=== PATIENT | female | born 1995 | race African-American/Black ===

== ENCOUNTER 2020-03-19 11:21 | Emergency (ER) | payer BC, OTHER ==
[2020-03-19 12:09] LABS: Urine Blood TRACE (NEG); Urine Glucose NEGATIVE (NEG); Urine Protein 1+ (NEG); Urine Specific Gravity >1.030 (1.005-1.030)
[2020-03-19 12:49] LABS: Urine Bacteria >50 /HPF (<20); Urine Culture Reflex Order REFLEXED
--- NOTE | 2020-03-19 13:05 | ER ---
Nurse's Notes [facility] Name: Nikolai Rojo Age: 24 yrs Sex: Female : 1995 Arrival Date: 03/19/2020 Time: 11:26 Bed 15 Private MD: Diagnosis: Urinary tract infection, site not specified Presentation: 03/19 11:33 Chief complaint: Patient states: suprapubic discomfort and low back pain that began 4 ss days ago. Burning with urination that began 2 days ago. Coronavirus screen: Client denies travel out of the [place] in the last 14 days. Ebola Screen: Patient denies exposure to infectious person. Patient denies travel to an Ebola-affected area in the 21 days before illness onset. Initial Sepsis Screen: Does the patient meet any 2 criteria? No. Patient's initial sepsis screen is negative. Does the patient have a suspected source of infection? No. Patient's initial sepsis screen is negative. Risk Assessment: Do you want to hurt yourself or someone else? Patient reports no desire to harm self or others. Onset of symptoms was March 15, 2020. 11:33 Method Of Arrival: Ambulatory ss 11:33 Acuity: LUBA 3 ss Historical: - Allergies: 11:36 No Known Allergies; ss - Home Meds: 11:36 None [Active]; ss - PMHx: 11:36 None; ss - PSHx: 11:36 Tonsillectomy; ss - Immunization history:: Adult Immunizations up to date. - Social history:: Smoking status: Patient denies any tobacco usage or history of. Screenin:05 Abuse screen: Denies threats or abuse. Denies injuries from another. Nutritional hb screening: No deficits noted. Tuberculosis screening: No symptoms or risk factors identified. Fall Risk None identified. Assessment: 11:45 General: Appears in no apparent distress. Behavior is calm, cooperative. Pain: Pain hb currently is 8 out of 10 on a pain scale. Neuro: Level of Consciousness is awake, alert, obeys commands, Oriented to person, place, time, situation. Cardiovascular: Capillary refill < 3 seconds Patient's skin is warm and dry. Respiratory: Airway is patent Respiratory effort is even, unlabored, Respiratory pattern is regular, symmetrical. GI: No signs and/or symptoms were reported involving the gastrointestinal system. : Reports suprapubic pain and pain with urination. EENT: No signs and/or symptoms were reported regarding the EENT system. Derm: Skin is pink, warm \T\ dry. Musculoskeletal: Reports low back pain. 12:45 Reassessment: Patient appears in no apparent distress at this time. Patient and/or hb family updated on plan of care and expected duration. Pain level reassessed. Patient is alert, oriented x 3, equal unlabored respirations, skin warm/dry/pink. Vital Signs: 11:33 BP 119 / 82; Pulse 93; Resp 14; Temp 97.9(TE); Pulse Ox 99% on R/A; Weight 56.7 kg; ss Height 5 ft. 4 in. (162.56 cm); Pain 8/10; 13:00 BP 118 / 80; Pulse 82; Resp 16; Pulse Ox 99% on R/A; hb 11:33 Body Mass Index 21.46 (56.70 kg, 162.56 cm) ED Course: 11:26 Patient arrived in ED. ds1 11:35 Triage completed. ss 11:36 Arm band placed on right wrist. ss 11:38 Juli Peña FNP-C is [facility]. kb 11:38 Corky Mcgregor MD is Attending Physician. kb 11:40 Laura Maher, RN is Primary Nurse. hb 12:05 Patient has correct armband on for positive identification. Bed in low position. Call hb light in reach. 13:21 No provider procedures requiring assistance completed. Patient did not have IV access hb during this emergency room visit. Administered Medications: No medications were administered Outcome: 13:04 Discharge ordered by . kb 13:21 Discharged to home ambulatory. hb 13:21 Condition: stable 13:21 Discharge instructions given to patient, Instructed on discharge instructions, follow up and referral plans. medication usage, Demonstrated understanding of instructions, follow-up care, medications, Prescriptions given X 2. 13:22 Patient left the ED. hb Addendum: 03/22/2020 09:07 Addendum: Culture Results: Positive urine culture. No further action required. Bacteria a a5 sensitive to prescribed antibiotic. Signatures: Juli Peña FNP-C X RAY DEVELOPER-Aliya Santiago ds1 Karine Blake RN RN aa5 Daria Yang RN RN Maher, Laura, RN RN hb
--- NOTE | 2020-03-19 13:05 | EDPHYS ---
Physician Documentation [facility] Name: Nikolai Rojo Age: 24 yrs Sex: Female : 1995 Arrival Date: 03/19/2020 Time: : Bed 15 Private MD: ED Physician Corky Mcgregor HPI: 03/19 12:01 This 24 yrs old Black Female presents to ER via Ambulatory with complaints of Pain With kb Urination, Low Back Pain, Nausea. 12:01 The patient presents with urinary symptoms, dysuria, frequency. Onset: The kb symptoms/episode began/occurred 4 day(s) ago. Modifying factors: The symptoms are alleviated by nothing, the symptoms are aggravated by urinating. Associated signs and symptoms: Pertinent positives: dysuria, urinary frequency, Pertinent negatives: constipation, cramping, diarrhea, dyspareunia, hematuria, nausea, vaginal bleeding, vaginal discharge, vomiting. Severity of symptoms: At their worst the symptoms were moderate, in the emergency department the symptoms are unchanged. The patient has experienced similar episodes in the past, a few times. The patient has not recently seen a physician. Pt reports dysuria and urinary frequency for 4 days. States it got worse after sexual intercourse so she came in . Historical: - Allergies: 11:36 No Known Allergies; ss - Home Meds: 11:36 None [Active]; ss - PMHx: 11:36 None; ss - PSHx: 11:36 Tonsillectomy; ss - Immunization history:: Adult Immunizations up to date. - Social history:: Smoking status: Patient denies any tobacco usage or history of. ROS: 12:00 Constitutional: Negative for fever, chills, and weight loss, Cardiovascular: Negative kb for chest pain, palpitations, and edema, Respiratory: Negative for shortness of breath, cough, wheezing, and pleuritic chest pain, Abdomen/GI: Negative for abdominal pain, nausea, vomiting, diarrhea, and constipation, Back: Negative for injury and pain, MS/Extremity: Negative for injury and deformity, Skin: Negative for injury, rash, and discoloration, Neuro: Negative for headache, weakness, numbness, tingling, and seizure. 12:00 : Positive for urinary symptoms, urinary frequency, burning with urination. Exam: 12:00 Constitutional: This is a well developed, well nourished patient who is awake, alert, kb and in no acute distress. Head/Face: Normocephalic, atraumatic. Chest/axilla: Normal chest wall appearance and motion. Nontender with no deformity. No lesions are appreciated. Cardiovascular: Regular rate and rhythm with a normal S1 and S2. No gallops, murmurs, or rubs. Normal PMI, no JVD. No pulse deficits. Respiratory: Lungs have equal breath sounds bilaterally, clear to auscultation and percussion. No rales, rhonchi or wheezes noted. No increased work of breathing, no retractions or nasal flaring. Abdomen/GI: Soft, non-tender, with normal bowel sounds. No distension or tympany. No guarding or rebound. No evidence of tenderness throughout. Back: No spinal tenderness. No costovertebral tenderness. Full range of motion. Skin: Warm, dry with normal turgor. Normal color with no rashes, no lesions, and no evidence of cellulitis. MS/ Extremity: Pulses equal, no cyanosis. Neurovascular intact. Full, normal range of motion. Neuro: Awake and alert, GCS 15, oriented to person, place, time, and situation. Cranial nerves II-XII grossly intact. Motor strength 5/5 in all extremities. Sensory grossly intact. Cerebellar exam normal. Normal gait. Vital Signs: 11:33 BP 119 / 82; Pulse 93; Resp 14; Temp 97.9(TE); Pulse Ox 99% on R/A; Weight 56.7 kg; ss Height 5 ft. 4 in. (162.56 cm); Pain 8/10; 13:00 BP 118 / 80; Pulse 82; Resp 16; Pulse Ox 99% on R/A; hb 11:33 Body Mass Index 21.46 (56.70 kg, 162.56 cm) ss MDM: 11:38 Patient medically screened. kb 12:01 Data reviewed: vital signs, nurses notes. Data interpreted: Pulse oximetry: on room air kb is 99 %. Interpretation: normal. 13:04 Counseling: I had a detailed discussion with the patient and/or guardian regarding: the kb historical points, exam findings, and any diagnostic results supporting the discharge/admit diagnosis, lab results, the need for outpatient follow up, a family practitioner, to return to the emergency department if symptoms worsen or persist or if there are any questions or concerns that arise at home. 03/19 11:38 Order name: Urine Microscopic Only; Complete Time: 13:04 kb 03/19 11:54 Order name: Urine Dipstick--Ancillary (enter results); Complete Time: 12:12 mt 03/19 11:38 Order name: Urine Test (obtain specimen); Complete Time: 11:54 kb 03/19 11:38 Order name: Urine Dipstick-Ancillary (obtain specimen); Complete Time: 11:54 kb 03/19 11:54 Order name: Urine --Ancillary (enter results); Complete Time: 12:12 mt 03/19 12:50 Order name: Urine Culture EDMS Administered Medications: No medications were administered Disposition: 18:51 Co-signature as Attending Physician, Corky Mcgregor MD I agree with the assessment and kdr plan of care. Disposition: 03/19/20 13:04 Discharged to Home. Impression: Urinary tract infection, site not specified. - Condition is Stable. - Discharge Instructions: Urinary Tract Infection, Adult, [id number]. - Prescriptions for Pyridium 200 mg Oral Tablet - take 1 tablet by ORAL route every 8 hours for 3 days; 9 tablet. Macrobid 100 mg Oral Capsule - take 1 capsule by ORAL route every 12 hours for 10 days; 20 capsule. - Medication Reconciliation Form, Thank You Letter, Antibiotic Education, Prescription Opioid Use form. - Follow up: Emergency Department; When: As needed; Reason: Worsening of condition. Follow up: Private Physician; When: 2 - 3 days; Reason: Recheck today's complaints, Continuance of care, Re-evaluation by your physician. Signatures: Dispatcher [employer] EDMS Juli Peña, UMBRELLA MENDER-C UMBRELLA MENDER-Corky Hernandez MD MD [facility] Daria Yang RN RN Laura Maher RN RN hb Corrections: (The following items were deleted from the chart) 13:22 13:04 03/19/2020 13:04 Discharged to Home. Impression: Urinary tract infection, site hb not specified. Condition is Stable. Discharge Instructions: Urinary Tract Infection, Adult, [id number]. Prescriptions for Pyridium 200 mg Oral Tablet - take 1 tablet by ORAL route every 8 hours for 3 days; 9 tablet, Macrobid 100 mg Oral Capsule - take 1 capsule by ORAL route every 12 hours for 10 days; 20 capsule. and Forms are Medication Reconciliation Form, Thank You Letter, Antibiotic Education, Prescription Opioid Use. Follow up: Emergency Department; When: As needed; Reason: Worsening of condition. Follow up: Private Physician; When: 2 - 3 days; Reason: Recheck today's complaints, Continuance of care, Re-evaluation by your physician. kb
[2020-03-19 13:27] VITALS: TEMP 97.9; O2SAT 99
[2020-03-19 13:28] VITALS: BP 118/80
== END 2020-03-19 13:22 | disposition home or self-care (01) ==
LOC: ER 11:21
DX: N39.0 Urinary tract infection, site not specified (principal)
CPT/HCPCS: 81003; 81015; 81025; 87077; 87086; 87088; 87186; 99282

== ENCOUNTER 2021-08-23 15:35 | Emergency (ER) | payer BC, SELFPAY ==
--- OUTSIDE RECORDS SUMMARY | 2021-08-23 15:38 | XMS REPORT | Continuity of Care Document ---
:1995 Author Organization [facility] t Address [address] [place] [address] Care Team Providers Name Role Phone PCP, DOES NOT HAVE A Primary Care Physician Unavailable Tabatha COLEMAN Attending Clinician Unavailable Silvia WHARTON S Attending Clinician Nettie Lemus NP Attending Clinician Nettie LEMUS Attending Clinician Unavailable Problems Condition Condition Condition Status Onset Resolution Last Treating Co mments Source Name Details Category Date Date Treatment Clinician Date No known No known Disease Unive rs active active ity of problems problems [facility] Allergies, Adverse Reactions, Alerts Allergy Allergy Status Severity Reaction(s) Onset Inactive Treating Comm ents Source Name Type Date Date Clinician Iodine Propensi Active Swelling 2020-06 Univer s ty to 06-27 ity of adverse 00:00: [place] reaction 00 [facility] [place] IODINE DRUG Active SOB 2020-06 Univers INGREDI 06-27 ity of 00:00: [place] 00 [facility] Social History Social Habit Start Date Stop Date Quantity Comments Source Exposure to Not sure [facility] SARS-CoV-2 (event) Medica l Branch Sex Assigned At [birth year] [facility] 00:00:00 00:00:00 [facility] Smoking Status Start Date Stop Date Source Unknown if ever smoked [facility] Medications Ordered Filled Start Stop Current Ordering Indication Dosage Frequency Signature Comments Components Source Medication Medication Date Date Medication? Clinician (SIG) Name Name casirivimab 2020-06- No 1200mg 1,200 mg, Univers 600 07-26 05-25 IV ity of mg-imdevima 02:45: 02:33 Infusion, [place] b 600 mg 00 :00 ONCE, Medical (REGEN-COV Administer [facility] (EUA)) 1200 over 20 mg in 60 mL Minutes, NS MINI-BAG On Mon (CO-FORMULA 05/24/21 TION) at 2045, For 1 dose<br&gt ;Add 1 vial of casirivima b 600 mg/imdevim ab 600 mg to 50 mL of NS to administer . Admi nister as an IV infusion via pump or gravity through an intravenou s line containing a sterile, in-line or add-on 0.2-micron polyethers ulfone (PES) filter.&nb sp;Stable 36 hours refrigerat ed; 4 hours at room temperatur e. &nbs p;
ondansetron 2020-06- No 4mg 4 mg, Slow Univers (ZOFRAN 07-26 IV Push, ity of (PF)) 02:30: 01:41 ONCE, 1 [place] injection 4 00 :00 dose, On Medi maryann mg [facility] Branch 05/24/21 at 2030, MONICA NaCl 0.9% 2020-06- No 1000mL at 999 Uni vers (NS) bolus 07-26 mL/hr, ity of infusion 02:30: 02:52 1,000 mL, Bonifacio as 1,000 mL 00 :00 IV Medical Infusion, Branch ONCE, 1 dose, On Mon05/24/21 at 2030, STAT acetaminoph 2020-06 No 1000mg 1,000 mg, Univers en 07-26 Oral, ity of (TYLENOL) 01:30: 00:34 ONCE, 1 [place] tablet 00 :00 dose, On Medical 1,000 mg [facility] Branch 05/24/21 at 1930, Routine ondansetron 2020-06 Yes [id number] 4mg Take 1 Univers (ZOFRAN 2-20 tablet by ity of ODT) 4 mg 00:00: mouth [place] disintegrat 00 every 8 Medic al ing tablet (eight) Branch hours as needed for Nausea and Vomiting (N/V). dexamethaso 2020-06- No 10mg 10 mg, Uni vers ne 1-24 11-24 Intramuscu ity of (DECADRON 06:45: 05:38 lar, ONCE, [place] PHOSPHATE) 00 :00 1 dose, On Med ical injection Wed Branch 10 mg 04/28/21 at 0045, Routine butalbital- 2020-06- No 2{tbl} 2 tablet, Univers acetaminoph 06-28 Oral, ity of en-caff 06:30: 05:37 ONCE, 1 [place] (ESGIC) 00 :00 dose, On Medical 50-325-40 Wed Branch mg tablet 2 04/28/21 tablet at 0030, Routine No known 2020-06 No Univers medications 06-27 ity of 23:33: [place] 31 [facility] Vital Signs Vital Name Observation Time Observation Value Comments Source Systolic blood 2021-05-25 03:01:00 104 mm[Hg] Univer sity of pressure [facility] Diastolic blood 2021-05-25 03:01:00 65 mm[Hg] [facility] Heart rate 2021-05-25 03:01:00 101 /min [facility] Respiratory rate 2021-05-25 03:01:00 22 /min [facility] Oxygen saturation in 2021-05-25 03:01:00 92 /min [place] of Arterial blood by [facility] Pulse oximetry Branch Body temperature 2021-05-25 00:17:28 39.56 Shilpa [facility] Body weight 2021-05-25 00:13:00 53.524 kg [facility] Systolic blood 2021-04-28 05:03:41 113 mm[Hg] Univer sity of [facility] Diastolic blood 2021-04-28 05:03:41 71 mm[Hg] Unive rsity of [facility] Heart rate 2021-04-28 05:03:41 89 /min [facility] Respiratory rate 2021-04-28 05:03:41 16 /min [facility] Oxygen saturation in 2021-04-28 05:03:41 100 /min University of Arterial blood by [facility] Pulse oximetry Branch Body temperature 2021-04-28 02:36:00 37.5 Shilpa [facility] Body weight 2021-04-28 02:36:00 53.524 kg Universi ty [facility] Procedures Procedure Date / Time Performed Performing Clinician Sourc e URINALYSIS 2021-05-25 00:53:00 Marlyn Coleman [place] [facility] f [facility] RAPID INFLUENZA A/B 2021-05-25 00:33:00 Marlyn Coleman [facility] COVID-19 (ID NOW RAPID 2021-05-25 00:33:00 Marlyn Coleman [facility] NOTICE OF PRIVACY 2021-05-25 00:08:19 Doctor Unassigned, No [facility] Name [facility] CONSENT/REFUSAL FOR 2021-05-25 00:07:59 Doctor Unassigned, No [facility] AND Name [facility] TREATMENT POCT TEST 2021-04-28 03:30:00 Cristy Lemus [facility] RAPID STREP SCREEN FOR 2021-04-28 03:21:00 Cristy Lemus [facility] RAPID INFLUENZA A/B 2021-04-28 03:21:00 Cristy Lemus [facility] COVID-19 (ID NOW RAPID 2021-04-28 03:21:00 Cristy Lemus [facility] TESTING) [facility] NOTICE OF PRIVACY 2021-04-28 02:34:35 Doctor Unassigned, No [facility] Name [facility] CONSENT/REFUSAL FOR 2021-04-28 02:32:51 Doctor Unassigned, No [facility] AND Name [facility] TREATMENT Encounters Start End Encounter Admission Attending Care Care Encounter Source Date/Time Date/Time Type Type Clinicians Facility Department ID 2021-05-24 2021-05-24 Emergency X CHA COLEMAN ERT [id number] Univers 18:15:00 21:15:00 MARLYN crawford [facility] 2021-05-24 2021-05-24 Emergency CHA Coleman [id number] Univers 18:15:00 21:15:00 Marlyn PERAZA [id number] i ty luanne ARCEO [id number] [facility] [id number] [place] [address] Branch 2021-04-27 2021-04-27 Emergency [facility] [id number] Univers 20:39:00 23:49:00 Cristy PERAZA [id number] ity [facility] [id number] [facility] [id number] [address] 2021-04-27 2021-04-27 Emergency X [facility] ERT [id number] Univers 20:39:00 23:49:00 CRISTY crawford [facility] Results Test Description Test Time Test Comments Results Result Comments Source POCT TEST 2021-04-28 03:30:00 Test Item Value Reference Range Interpretation Comme nts POCT PREG (test code = 1605) negative On board controls acceptable with C Line (test code = 3574) present POCT PREG LOT # (test code = 3575) [id number] POCT PREG TEST DATE (test code = 3576) 2022-07-05 Lab Interpretation (test code = 71821-9) Normal [facility]
[2021-08-23 16:22] LABS: Urine Blood Negative (Negative); Urine Glucose Negative (Negative); Urine Protein Trace (Negative); Urine Specific Gravity 1.025 (1.005-1.030)
[2021-08-23] MEDS ORDERED: KETOROLAC 30 MG/ML INJ ONE (16:27)
[2021-08-23] MEDS ORDERED: NA CHLORIDE 0.9% 1,000 ML ONE (16:27)
[2021-08-23 16:33] LABS: Urine Specific Gravity/Preg 1.025 (1.005-1.030)
[2021-08-23 16:34] LABS: Absolute Lymphocytes (CBC) 1.9 K/uL (0.7-4.9); Hematocrit 36.2 % (36.0-45.0); Lymphocytes % 28.1 % (15.3-44.8); MPV 8.7 fL (7.6-11.3); RBC Red Blood Cell Count 3.97 M/uL (3.86-4.86)
--- NOTE | 2021-08-23 16:34 | RAD REPORT ---
EXAM DESCRIPTION: RAD - Chest Single View - 08/23/2021 4:28 pm CLINICAL HISTORY: CHEST PAIN Chest pain. COMPARISON: No comparisons FINDINGS: Portable technique limits examination quality. The lungs are grossly clear. The heart is normal in size. No displaced fractures. IMPRESSION: No acute intrathoracic process suspected.
[2021-08-23 16:51] LABS: BUN Blood Urea Nitrogen 11 mg/dL (7-18); Bicarbonate 23 mmol/L (21-32); Glucose Level 84 mg/dL (74-106); Potassium 3.9 mmol/L (3.5-5.1); Sodium Level 139 mmol/L (136-145)
[2021-08-23 16:59] LABS: Barbiturates NEGATIVE (NEGATIVE); Benzodiazepines NEGATIVE (NEGATIVE); Cocaine NEGATIVE (NEGATIVE); METHAMPHETAM NEGATIVE (NEGATIVE); Methadone NEGATIVE (NEGATIVE); Opiates NEGATIVE (NEGATIVE); Phencyclidine NEGATIVE (NEGATIVE); THC Cannibis POSITIVE (NEGATIVE)
[2021-08-23 17:20] LABS: Troponin High Sensitivity < 3.00 pg/mL (<58.9)
--- NOTE | 2021-08-23 17:53 | EDPHYS ---
Physician Documentation [facility] Name: Nikolai Rojo Age: 25 yrs Sex: Female : 1995 Arrival Date: 08/23/2021 Time: 15:38 Bed 13 Private MD: ED Physician Corky Mcgregor HPI: 08/23 16:26 This 25 yrs old Black Female presents to ER via Ambulatory with complaints of Chest pm1 Pain. 16:26 The patient or guardian reports chest pain that is located primarily in the anterior pm1 aspect of left upper chest. The pain does not radiate. Associated signs and symptoms: Pertinent positives: Dizziness, blurred vision, and hyperventilation when she had the chest pain this AM at 9. Patient also reports during the hyperventilation episode she had numbness and tingling to her upper extremities. After patient's hyperventilation resolved, patient's dizziness and blurred vision disappeared. Patient is presenting to the ER now with chest pain that is reproducible with palpation, deep breathing, and movement of her left arm.. The chest pain is described as sharp. Duration: The patient or guardian reports a single episode, that is still ongoing. Modifying factors: the symptoms are aggravated by deep breath, palpation of area, Movement of left arm. Severity of pain: in the emergency department the pain is unchanged. The patient has not experienced similar symptoms in the past. The patient has not recently seen a physician. 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 - Social history:: Smoking status: Reported history of juuling and/or vaping. ROS: 16:26 Constitutional: Negative for fever, chills, and weight loss. pm1 16:26 Abdomen/GI: Negative for abdominal pain, nausea, vomiting, diarrhea, and constipation, Back: Negative for injury and pain, MS/Extremity: Negative for injury and deformity, Skin: Negative for injury, rash, and discoloration, Neuro: Negative for headache, weakness, numbness, tingling, and seizure. 16:26 Cardiovascular: Positive for chest pain, Negative for palpitations. 16:26 Respiratory: Negative for cough, dyspnea on exertion, shortness of breath. 16:26 All other systems are negative. Exam: 16:26 Constitutional: This is a well developed, well nourished patient who is awake, alert, pm1 and in no acute distress. Head/Face: Normocephalic, atraumatic. 16:26 Back: No spinal tenderness. No costovertebral tenderness. Full range of motion. Skin: Warm, dry with normal turgor. Normal color with no rashes, no lesions, and no evidence of cellulitis. MS/ Extremity: Pulses equal, no cyanosis. Neurovascular intact. Full, normal range of motion. 16:26 Chest/axilla: Inspection: normal, Palpation: tenderness, that is moderate, of the anterior aspect of left upper chestfocal point, that totally reproduces the patient's complaints, Movement of left arm and deep breathing reproduces her symptoms of chest pain. 16:26 Cardiovascular: Exam negative for acute changes, Rate: normal, Rhythm: regular, Pulses: no pulse deficits are appreciated. 16:26 Respiratory: Exam negative for acute changes, respiratory distress, shortness of breath, Breath sounds: are clear throughout. 16:26 Abdomen/GI: Exam negative for acute changes, Inspection: abdomen appears normal, Palpation: abdomen is soft and non-tender, in all quadrants. 16:26 Neuro: Exam negative for acute changes, Orientation: is normal, Mentation: is normal, Motor: is normal, moves all fours. Vital Signs: 15:46 BP 117 / 70; Pulse 101; Resp 15; Temp 97.9(TE); Pulse Ox 100% on R/A; ss 15:50 Weight 53.98 kg; Height 5 ft. 4 in. (162.56 cm); Pain 9/10; ss 16:30 BP 110 / 67; Pulse 81; Resp 15 S; Pulse Ox 94% on R/A; jg9 17:00 BP 119 / 82; Pulse 84; Resp 14 S; Pulse Ox 96% on R/A; jg9 17:30 BP 116 / 81; Pulse 95; Resp 16 S; Pulse Ox 98% on R/A; jg9 15:50 Body Mass Index 20.43 (53.98 kg, 162.56 cm) ss MDM: 15:50 Patient medically screened. pm1 16:47 Data reviewed: vital signs. Data interpreted: Pulse oximetry: on room air is 100 %. pm1 Interpretation: normal. 17:50 Counseling: I had a detailed discussion with the patient and/or guardian regarding: the pm1 historical points, exam findings, and any diagnostic results supporting the discharge/admit diagnosis, lab results, radiology results, the need for outpatient follow up, to return to the emergency department if symptoms worsen or persist or if there are any questions or concerns that arise at home, smoking cessation. Special discussion: smoking cessation, vaping cessation. 08/23 15:51 Order name: Basic Metabolic Panel; Complete Time: 17:36 pm1 08/23 15:51 Order name: CBC with Diff; Complete Time: 16:47 pm1 08/23 15:51 Order name: Troponin HS; Complete Time: 17:36 pm1 08/23 15:51 Order name: UDS; Complete Time: 17:01 pm1 08/23 16:22 Order name: Urine Dipstick-Ancillary; Complete Time: 16:26 EDMS 08/23 15:51 Order name: XRAY Chest (1 view); Complete Time: 16:47 pm1 08/23 15:51 Order name: EKG; Complete Time: 15:51 pm1 08/23 15:51 Order name: Cardiac monitoring; Complete Time: 16:21 pm1 08/23 15:51 Order name: EKG - Nurse/Tech; Complete Time: 16:21 pm1 08/23 16:26 Order name: Urine --Ancillary (enter results) bd 08/23 16:27 Order name: Urine --Ancillary; Complete Time: 16:47 EDMS 08/23 15:51 Order name: IV Saline Lock; Complete Time: 16:17 pm1 08/23 15:51 Order name: Labs collected and sent; Complete Time: 16:18 pm1 08/23 15:51 Order name: O2 Sat Monitoring; Complete Time: 16:23 pm1 08/23 15:51 Order name: Urine Dipstick-Ancillary (obtain specimen); Complete Time: 16:23 pm1 08/23 15:51 Order name: Urine Test (obtain specimen); Complete Time: 16:23 pm1 Administered Medications: 16:27 Drug: NS 0.9% 1000 ml Route: IV; Rate: 1000 ml; Site: left antecubital; jg9 17:54 Follow up: IV Status: Completed infusion; IV Intake: 1000ml jg9 16:30 Drug: Ketorolac 30 mg Route: IVP; Site: left antecubital; jg9 17:55 Follow up: Response: No adverse reaction; Pain is decreased jg9 Disposition: 18:17 Co-signature as Attending Physician, Corky Mcgregor MD I agree with the assessment and kdr plan of care. Disposition Summary: 08/23/21 17:53 Discharge Ordered Location: Home pm1 Problem: new pm1 Symptoms: have improved pm1 Condition: Stable pm1 Diagnosis - Chest pain, unspecified pm1 Followup: pm1 - With: Emergency Department - When: As needed - Reason: Worsening of condition Followup: pm1 - With: Private Physician - When: 2 - 3 days - Reason: Recheck today's complaints, Continuance of care, Re-evaluation by your physician Discharge Instructions: - Discharge Summary Sheet pm1 - Nonspecific Chest Pain, Adult pm1 - Chest Wall Pain pm1 Forms: - Medication Reconciliation Form pm1 - Thank You Letter pm1 - Antibiotic Education pm1 - Prescription Opioid Use pm1 Prescriptions: - Cyclobenzaprine 10 mg Oral Tablet - take 1 tablet by ORAL route every 8 hours As needed; 30 tablet; Refills: 0, pm1 Product Selection Permitted - Diclofenac Sodium 75 mg Oral tablet,delayed release (DR/EC) - take 1 tablet by ORAL route 2 times per day As needed; 30 tablet; Refills: 0, pm1 Product Selection Permitted Signatures: Dispatcher [facility] Corky Mcgregor MD MD [facility] Daria Yang RN RN Ian Faulkner, DAYO TRADING SPECIALIST pm1 Marylou Naik RN RN jg9 Corrections: (The following items were deleted from the chart) 16:38 15:51 D-DIMER+[id number].BRZ ordered. [facility]
--- NOTE | 2021-08-23 17:53 | ER ---
Nurse's Notes [facility] Name: Nikolai Rojo Age: 25 yrs Sex: Female : 1995 Arrival Date: 08/23/2021 Time: 15:38 Bed 13 Private MD: Diagnosis: Chest pain, unspecified Presentation: 08/23 15:46 Chief complaint: Patient states: L sided chest pain that began at 0900 this morning. ss Coronavirus screen: Client denies travel out of the [place] in the last 14 days. Ebola Screen: Patient denies exposure to infectious person. Patient denies travel to an Ebola-affected area in the 21 days before illness onset. Initial Sepsis Screen: Does the patient meet any 2 criteria? No. Patient's initial sepsis screen is negative. Does the patient have a suspected source of infection? No. Patient's initial sepsis screen is negative. Risk Assessment: Do you want to hurt yourself or someone else? Patient reports no desire to harm self or others. Onset of symptoms was August 23, 2021. 15:46 Method Of Arrival: Ambulatory ss 15:46 Acuity: LUBA 3 Triage Assessment: 16:00 General: Appears in no apparent distress. Behavior is calm, cooperative. Pain: jg9 Complains of pain in anterior aspect of left upper chest Pain currently is 6 out of 10 on a pain scale. Cardiovascular: Reports chest pain. 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 - Social history:: Smoking status: Reported history of juuling and/or vaping. Screenin:47 Abuse screen: Denies threats or abuse. Denies injuries from another. Nutritional jg9 screening: No deficits noted. Tuberculosis screening: No symptoms or risk factors identified. Fall Risk None identified. Assessment: 17:47 Reassessment: No changes from previously documented assessment. Patient and/or family jg9 updated on plan of care and expected duration. Pain level reassessed. Patient is alert, oriented x 3, equal unlabored respirations, skin warm/dry/pink. Pain: Complains of pain in anterior aspect of left upper chest Pain does not radiate. Pain began 1 day ago. Vital Signs: 15:46 BP 117 / 70; Pulse 101; Resp 15; Temp 97.9(TE); Pulse Ox 100% on R/A; ss 15:50 Weight 53.98 kg; Height 5 ft. 4 in. (162.56 cm); Pain 9/10; ss 16:30 BP 110 / 67; Pulse 81; Resp 15 S; Pulse Ox 94% on R/A; jg9 17:00 BP 119 / 82; Pulse 84; Resp 14 S; Pulse Ox 96% on R/A; jg9 17:30 BP 116 / 81; Pulse 95; Resp 16 S; Pulse Ox 98% on R/A; jg9 15:50 Body Mass Index 20.43 (53.98 kg, 162.56 cm) ED Course: 15:38 Patient arrived in ED. kz 15:48 Triage completed. ss 15:48 Arm band placed on right wrist. ss 15:49 Ian Black, FOOD CONCESSION MANAGER is PHCP. pm1 15:49 Corky Mcgregor MD is Attending Physician. pm1 16:12 Marylou Naik RN is Primary Nurse. jg9 16:22 Patient has correct armband on for positive identification. Placed in gown. Bed in low mb7 position. Call light in reach. 16:22 EKG done, by ED staff, reviewed by Ian Black NP. Inserted saline lock: 20 gauge mb7 in right antecubital area, using aseptic technique. 16:23 Door closed. Noise minimized. Warm blanket given. mb7 16:24 UDS Sent. mb7 16:27 XRAY Chest (1 view) In Process Unspecified. EDMS 16:30 cafeteria monitor on. jg9 16:30 Patient maintains SpO2 saturation greater than 95% on room air. jg9 17:08 Urine --Ancillary (enter results) Sent. jg9 17:50 No apparent distress. Resting quietly. Awaiting disposition. Pt visited by mother, jg9 sister. 18:10 No provider procedures requiring assistance completed. jg9 18:10 Patient did not have IV access during this emergency room visit. jg9 Administered Medications: 16:27 Drug: NS 0.9% 1000 ml Route: IV; Rate: 1000 ml; Site: left antecubital; jg9 17:54 Follow up: IV Status: Completed infusion; IV Intake: 1000ml jg9 16:30 Drug: Ketorolac 30 mg Route: IVP; Site: left antecubital; jg9 17:55 Follow up: Response: No adverse reaction; Pain is decreased jg9 Intake: 17:54 IV: 1000ml; Total: 1000ml. jg9 Outcome: 17:53 Discharge ordered by . pm1 18:10 Discharged to home ambulatory. jg9 18:10 Condition: stable 18:12 Discharge instructions given to patient. jg9 18:12 Patient left the ED. jg9 Signatures: Dispatcher [employer] EDMS Daria Yang RN RN ss Ian Black, FOOD CONCESSION MANAGER FOOD CONCESSION MANAGER pm1 Alanis Mauricio mb7 Marylou Naik RN RN jg9 Carol Oviedo Corrections: (The following items were deleted from the chart) 18:12 18:10 Discharge instructions given to patient, Mom jg9 jg9
[2021-08-23 18:44] VITALS: TEMP 97.9
[2021-08-23 18:49] VITALS: BP 116/81; O2SAT 98
--- NOTE | 2021-08-24 08:44 | EKG ---
Test Date: 2021-08-23 Test Time: 15:59:37 Allergist/Md: MBMicah MEASUREMENT RESULTS: Intervals: Rate: 79 SD: 126 QRSD: 76 QT: 344 QTc: 394 [place]: P: 73 SD: 126 QRS: 85 T: 71 INTERPRETIVE STATEMENTS: Normal sinus rhythm with sinus arrhythmia Normal ECG No previous ECG available for comparison Electronically Signed On 08-24-21 08:42:16 CDT by Odilon Rodriguez
== END 2021-08-23 18:12 | disposition home or self-care (01) ==
LOC: ER 15:35
DX: R07.9 Chest pain, unspecified (principal); R01.1 Cardiac murmur, unspecified; J45.909 Unspecified asthma, uncomplicated
CPT/HCPCS: 36415; 71045; 80048; 80307; 81003; 81025; 84484; 85025; 93005; 96361; 96374; 99285; J7030